=== PATIENT | male | born 1975 | race Caucasian/White ===

== ENCOUNTER 2017-01-04 04:38 | Emergency (ER) | payer OTHER ==
[2017-01-04 06:36] VITALS: BP 142/86
== END 2017-01-04 06:36 | disposition home or self-care (01) ==
LOC: ED 04:38
DX: F31.9 Bipolar disorder, unspecified (principal); F41.0 Panic disorder [episodic paroxysmal anxiety]; I10 Essential (primary) hypertension; F20.9 Schizophrenia, unspecified; Z88.8 Allergy status to other drugs, medicaments and biological substances
CPT/HCPCS: J2060

== ENCOUNTER 2017-04-11 18:31 | Emergency (ER) | payer OTHER ==
[2017-04-11 21:31] VITALS: BP 157/99
== END 2017-04-11 21:31 | disposition home or self-care (01) ==
LOC: ED 18:31
DX: J20.9 Acute bronchitis, unspecified (principal); I10 Essential (primary) hypertension; Z88.8 Allergy status to other drugs, medicaments and biological substances; Z59.0 Homelessness; Z71.6 Tobacco abuse counseling
CPT/HCPCS: 99406; Q0092

== ENCOUNTER 2017-04-11 21:46 | Emergency (ER) | payer OTHER | END 2017-04-11 23:12 | disposition left against medical advice (07) | LOC: ED 21:46 | DX: Z53.21 Procedure and treatment not carried out due to patient leaving prior to being seen by health care provider (principal) ==